=== PATIENT | male | born 1955 | race African-American/Black ===

== ENCOUNTER 2019-04-30 11:18 | Inpatient (IN) | payer MEDICAID ==
[~2019-04-30] VITALS: Ht 188 cm; Wt 76.2 kg
[2019-04-30] MEDS ORDERED: METHYLPREDNISOLONE SOD SUCC 125 MG/2 ML VIAL IV STA (11:26)
[2019-04-30] MEDS ORDERED: IPRATROPIUM BROMIDE (0.02%) 0.5MG/2.5ML NEB HHN STA (11:26)
[2019-04-30] MEDS ORDERED: ALBUTEROL (0.083%) 2.5MG/3ML NEB HHN STA (11:26)
[2019-04-30] MEDS ORDERED: MAGNESIUM 2 G PREMIX 50 ML IV ONE (11:30)
[2019-04-30] MEDS ORDERED: FUROSEMIDE 40MG/4ML VIAL IV ONE (11:30)
[2019-04-30 11:55] LABS: BASOPHILS % 0.6 % (0.0-2.0); EOSINOPHILS % 1.2 % (0.0-5.0); HEMATOCRIT. 47.1 % (42.0-52.0); HEMOGLOBIN. 15.6 g/dL (14.0-18.0); LYMPHOCYTES % 15.6 % (20.0-50.0); MEAN CORPUSCULAR HEMOGLOBIN 34.3 pg (28.0-32.0); MEAN CORPUSCULAR VOLUME 103.4 fL (80.0-94.0); MEAN PLATELET VOLUME 10.1 fl (7.4-10.4); MONOCYTES % 14.3 % (2.0-8.0); NEUTROPHILS % 68.3 % (40.0-76.0); PLATELET 107 x1000/uL (130-400); RED BLOOD CELL COUNT 4.55 mill/uL (4.7-6.1); RED CELL DISTRIBUTION WIDTH 16.7 % (11.6-14.6)
[2019-04-30 12:02] LABS: CHLORIDE 95 mEq/L (98-107)
[2019-04-30 12:06] LABS: INR 1.6; PARTIAL THROMBOPLASTIN TIME 30.1 sec (23.4-31.0); PROTHROMBIN TIME 16.6 sec (9.6-11.0)
[2019-04-30 12:08] LABS: BG BASE EXCESS 7.7 mmol/L (-2.0-2.0); BG BILEVEL POS AIRWAY PRESSURE 15/5; BG CARBOXYHEMOGLOBIN 3.5 % (0.5-1.5); BG DEOXYHEMOGLOBIN 1.7 % (0.0-5.0); BG FRACTION INSPIRED OXYGEN 40; BG HCO3 ACT 36.1 mmol/L (22.0-26.0); BG METHEMOGLOBIN 0.2 % (0.0-1.5); BG OXYGEN SATURATION 98.2 % (92.0-98.5); BG OXYHEMOGLOBIN 94.6 % (94.0-97.0); BG PCO2 66.4 mmHg (35.0-45.0); BG PH 7.353 (7.350-7.450); BG PO2 127.9 mmHg (75.0-100.0); BG SAMPLE SITE RIGHT BRACHIAL; BG TOTAL HEMOGLOBIN 15.8 g/dL (12.0-18.0); BG VENT MODE MASK - BIPAP
[2019-04-30] MEDS ORDERED: DOXYCYCLINE HYCLATE 100 MG/VIAL IV ONE (12:30)
[2019-04-30] MEDS ORDERED: CEFTRIAXONE 1 G PREMIX 50 ML IV ONE (12:30)
[2019-04-30] MEDS ORDERED: DOXYCYCLINE 100MG in DEXTROSE 5% WATER 100ML IV ONE (12:45)
[2019-04-30] MEDS ORDERED: IPRATROPIUM/ALBUTEROL 0.5-3(2.5)MG/3ML NEB HHN SCH (16:00)
[2019-04-30] MEDS ORDERED: CEFTRIAXONE 1 G PREMIX 50 ML IV SCH (16:00)
[2019-04-30] MEDS ORDERED: ACETAMINOPHEN 325MG TABLET PO PRN (16:00)
[2019-04-30] MEDS ORDERED: ONDANSETRON HCL 4MG/2ML INJ IV PRN (16:00)
[2019-04-30] MEDS ORDERED: CLONIDINE 0.1MG TABLET PO PRN (16:00)
[2019-04-30] MEDS ORDERED: MAGNESIUM/ALUMINUM HYDROXIDE/SIMETHICONE 30ML UDC PO PRN (16:00)
[2019-04-30] MEDS ORDERED: LORAZEPAM 0.5MG TABLET PO PRN (16:00)
[2019-04-30] MEDS ORDERED: KETOROLAC 15MG/ML VIAL IV PRN (16:00)
[2019-04-30] MEDS ORDERED: GUAIFENESIN/DM 600MG/30MG ER TAB 12HR PO SCH (16:00)
[2019-04-30] MEDS ORDERED: DOCUSATE SODIUM 100MG CAPSULE PO PRN (16:00)
[2019-04-30] MEDS ORDERED: ENOXAPARIN 40MG/0.4ML SYR SUBCUT SCH ×2 (16:00→22:00)
[2019-04-30] MEDS ORDERED: GUAIFENESIN 200MG/10ML SUGAR FREE UDC PO PRN (16:00)
[2019-04-30] MEDS ORDERED: IPRATROPIUM/ALBUTEROL 0.5-3(2.5)MG/3ML NEB NEB PRN (16:00)
[2019-04-30] MEDS ORDERED: NITROGLYCERIN 0.4MG TABLET SL SL PRN (16:00)
[2019-04-30] MEDS ORDERED: AZITHROMYCIN 500 MG in DEXT 5% WATER 250 ML IV SCH (17:45)
[2019-04-30] MEDS ORDERED: DILTIAZEM HCL 60MG TABLET PO SCH (18:00)
[2019-04-30 19:50] LABS: TOTAL IRON BINDING CAPACITY 294 ug/dL (250-450)
[2019-04-30 19:51] LABS: HDL CHOLESTEROL 56 mg/dL (40-59); LDL CHOLESTEROL 53 mg/dL (5-100)
[2019-04-30 19:52] VITALS: BP 154/110
[2019-04-30 20:00] VITALS: BP 154/110
[2019-04-30 20:20] LABS: VITAMIN B12 SERUM 538 pg/mL (211-911)
[2019-04-30 21:35] LABS: *AMPHETAMINES SCREEN URINE NEGATIVE (NEGATIVE); *BARBITURATES SCREEN URINE NEGATIVE (NEGATIVE); *BENZODIAZEPINES SCREEN URINE NEGATIVE (NEGATIVE); *COCAINE SCREEN URINE PRESUMTIVE POSITIVE (NEGATIVE); CANNABINOID URINE SCREEN NEGATIVE (NEGATIVE); METHADONE URINE SCREEN NEGATIVE (NEGATIVE); OPIATES URINE SCREEN NEGATIVE (NEGATIVE); PHENCYCLIDINE URINE SCREEN NEGATIVE (NEGATIVE)
[2019-04-30] MEDS: FUROSEMIDE 40MG/4ML VIAL IVP SCH (21:54)
[2019-04-30] MEDS: METHYLPREDNISOLONE SOD SUCC 125 MG/2 ML VIAL IV SCH (21:54)
[2019-04-30] MEDS: ASCORBIC ACID 500 MG TABLET PO SCH (21:54)
[2019-04-30 22:00] VITALS: BP 139/95
[2019-04-30] MEDS ORDERED: FAMOTIDINE 20MG TABLET PO SCH (22:00)
[2019-04-30] MEDS ORDERED: ZOLPIDEM TARTRATE 5MG TABLET PO PRN (22:00)
[2019-04-30] MEDS: GUAIFENESIN/DM 600MG/30MG ER TAB 12HR PO SCH (22:04)
[2019-04-30] MEDS: FAMOTIDINE 40MG TABLET PO SCH (22:29)
[2019-04-30 23:45] VITALS: BP 143/92
[2019-05-01] VITALS (7 sets, daily range): BP systolic 119–139; BP diastolic 87–102
[2019-05-01] MEDS: DILTIAZEM HCL 60MG TABLET PO SCH ×3 (00:48→11:27)
[2019-05-01] MEDS: IPRATROPIUM/ALBUTEROL 0.5-3(2.5)MG/3ML NEB HHN SCH ×3 (01:29→09:10)
[2019-05-01 02:32] LABS: CREATINE KINASE MB FRACTION 3.8 ng/mL (0.5-3.6)
[2019-05-01] MEDS: METHYLPREDNISOLONE SOD SUCC 125 MG/2 ML VIAL IV SCH (05:37)
[2019-05-01 07:42] LABS: CREATINE KINASE MB FRACTION 4.1 ng/mL (0.5-3.6)
[2019-05-01] MEDS: GUAIFENESIN/DM 600MG/30MG ER TAB 12HR PO SCH (08:31)
[2019-05-01] MEDS: FUROSEMIDE 40MG/4ML VIAL IVP SCH (08:31)
[2019-05-01] MEDS: ASCORBIC ACID 500 MG TABLET PO SCH (08:32)
[2019-05-01] MEDS: FAMOTIDINE 40MG TABLET PO SCH (08:32)
[2019-05-01] MEDS ORDERED: CEFTRIAXONE 1 G PREMIX 50 ML IV SCH (09:00)
[2019-05-01] MEDS ORDERED: ZINC SULFATE 220 MG ( 50 ) CAPSULE PO SCH (09:00)
[2019-05-01] MEDS ORDERED: PNEUMOCOCCAL 23-VAL P-SAC VAC 0.5 ML IM ONE (10:15)
[2019-05-01] MEDS ORDERED: AZITHROMYCIN 500 MG in DEXT 5% WATER 250 ML IV SCH (14:00)
== END 2019-05-01 12:40 | disposition home or self-care (01) | DRG 139 ==
LOC: ER 11:18 → 5EST 12:33 → EDBEDREQ 13:08 → EDBEDREQSVC 13:08 → ENRESERV 18:16
PROVIDERS: ADMIT Internal Medicine; ATTEND Internal Medicine
PROC: 5A09357 Assistance with Respiratory Ventilation, Less than 24 Consecutive Hours, Continuous Positive Airway Pressure (ICD-10-PCS; principal; 2019-04-30)
DX: J18.9 Pneumonia, unspecified organism (principal); J96.00 Acute respiratory failure, unspecified whether with hypoxia or hypercapnia; E43 Unspecified severe protein-calorie malnutrition; I11.0 Hypertensive heart disease with heart failure; I50.30 Unspecified diastolic (congestive) heart failure; E87.5 Hyperkalemia; E83.51 Hypocalcemia; E11.9 Type 2 diabetes mellitus without complications; K74.60 Unspecified cirrhosis of liver; J43.9 Emphysema, unspecified; Z99.81 Dependence on supplemental oxygen; Z68.21 Body mass index [BMI] 21.0-21.9, adult
CPT/HCPCS: 36415; 36600; 71045; 71250; 80053; 80061; 80305; 82375; 82550; 82553; 82607; 82746; 82805; 83036; 83540; 83550; 83605; 83880; 84484; 85025; 87804; 90732; 93005; 93970; 94640; 94660; 96365; 99291; J0456; J0696; J1650; J1940; J2930; J3475; J3490; J7060; J7611; J7620